=== PATIENT | female | born 1960 | race Two or more races ===

== ENCOUNTER 2018-09-07 05:59 | Day surgery (SDC) | payer BC, OTHER ==
[~2018-09-07] VITALS: Ht 162.6 cm; Wt 83.3 kg
[2018-09-07 06:40] VITALS: Ht 162.6 cm; Wt 83.3 kg
[2018-09-07] MEDS ORDERED: HYDR25TA6 PO (06:50)
[2018-09-07] MEDS ORDERED: ASPI-535 PO (06:50)
[2018-09-07] MEDS ORDERED: FOSI40TA5 PO (06:50)
[2018-09-07] MEDS ORDERED: INSU100I33 SC (06:50)
[2018-09-07] MEDS ORDERED: LINA5TAB PO (06:50)
[2018-09-07] MEDS ORDERED: EMPA25TA PO (06:50)
[2018-09-07] MEDS ORDERED: MTF1000T PO (06:50)
[2018-09-07 07:25] VITALS: BP 118/76; PULSE 75; RESP 12
--- NOTE | 2018-09-07 07:47 | PREAC ---
Date/Time of Note Date/Time of Note DATE: 09/07/18 TIME: 07:46 Anesthesia Eval and Record Evaluation Time Pre-Procedure Interview DATE: 09/07/18 TIME: 07:46 Age 58 Sex female NPO: 8 hrs Preoperative diagnosis screening for cancer Planned procedure colonoscopy with biopsies Past Medical History Past Medical History: Includes Cardio: HTN Endo: Diabetes Surgery & Anesthesia Issues No known issue Meds Anticoagulation: No Beta Augustine within 24 hr: No Reason Beta Augustine not given: Pt. not on B-Augustine Reported Medications Linagliptin (TRADJENTA) 5 Mg Tablet, 5 MG PO, TAB 09/07/18 Metformin* (Glucophage*) 1,000 Mg Tablet, 1000 MG PO BID, #60 TAB 09/07/18 Empagliflozin (Jardiance) 25 Mg Tablet, 25 MG PO, TAB 09/07/18 Hydrochlorothiazide* (Hydrochlorothiazide*) 25 Mg Tab, 25 MG PO DAILY, #30 TAB 09/07/18 Fosinopril Sodium (Fosinopril Sodium) 40 Mg Tablet, 40 MG PO DAILY, TAB 09/07/18 Insulin Glargine,Hum.rec.anlog (Basaglar Kwikpen U-100) 100 Unit/1 Ml Insuln.pen, 24 UNIT SC HS PRN for DAILY, EA 09/07/18 Aspirin Ec (Aspir 81) 81 Mg Tablet.dr, 81 MG PO DAILY, #30 TAB 09/07/18 Meds reviewed: No Allergies Coded Allergies: No Known Allergy (Verified Allergy, Unknown, 10/06/06) Allergies Reviewed: No Labs/Studies Labs Reviewed: Reviewed by anesthesiologist test: N/A Pre-procedure Exam Last vitals Vital Signs Date Temp Pulse Resp B/P (MAP) Pulse Ox O2 O2 Flow FiO2 Time Delivery Rate 09/07/18 97.8 75 12 118/76 99 Room Air 07:25 (90) Airway: Adequate mouth opening, Adequate thyromental dist Mallampati: Mallampati II Teeth: Normal Lung: Normal Heart: Normal ASA Physical Status ASA physical status: 2 Emergency: None Planned Anesthetic General/MAC: MAC Planned Pain Management Parenteral pain med Pre-operative Attestations Prior to commencing anesthesia and surgery, the patient was re-evaluated, there was verification of: *The patient's identity *The results of appropriate recent lab work and preoperative vital signs *The above evaluation not changing prior to induction *Anesthetic plan, risk benefits, alternative and complications discussed with patient/family; questions answered; patient/family understands, accepts and wishes to proceed. Rudolph Lew M.D. Sep 07, 2018 07:47
[2018-09-07] MEDS ORDERED: PROPOFOL 40 ML ONE (07:48)
[2018-09-07] MEDS ORDERED: LIDOCAINE 100 MG SYRINGE ONE (07:48)
[2018-09-07] MEDS ORDERED: TRIMETHOBENZAMIDE 100 MG/ML VIAL IM PRN (08:00)
[2018-09-07] MEDS ORDERED: OXYCODONE/ACETAMINOPHEN (5/325) TAB PO PRN ×2 (08:00)
[2018-09-07] MEDS ORDERED: EPHEDrine SULFATE 50 MG/5 ML SYG IV PRN (08:00)
[2018-09-07] MEDS ORDERED: MIDAZOLAM 1 MG/ML 2 ML INJ IV PRN (08:00)
[2018-09-07] MEDS ORDERED: HYDROmorphONE 1 MG/5 ML IV SYRINGE IV PRN ×3 (08:00)
[2018-09-07] MEDS ORDERED: FENTAnyl 50 MCG/ML VIAL IV PRN ×3 (08:00)
[2018-09-07] MEDS ORDERED: LABETALOL HCL 20MG INJ IV PRN (08:00)
[2018-09-07] MEDS ORDERED: ONDANSETRON 4 MG INJ IV PRN (08:00)
[2018-09-07] MEDS ORDERED: MEPERIDINE 25 MG INJ IV PRN (08:00)
[2018-09-07] MEDS ORDERED: DIPHENHYDRAMINE 50 MG INJ IV PRN (08:00)
[2018-09-07] MEDS ORDERED: ALBUTEROL 0.083% (NEB) 2.5 MG/3 ML AMP HHN PRN (08:00)
[2018-09-07] MEDS ORDERED: IPRATROPIUM (NEB) 0.5 MG/2.5 ML AMP HHN PRN (08:00)
[2018-09-07] MEDS ORDERED: hydrALAzine 20 MG INJ IV PRN (08:00)
[2018-09-07 08:34] VITALS: BP 105/59; PULSE 69; RESP 18
--- NOTE | 2018-09-07 08:39 | PAC ---
Date/Time of Note Date/Time of Note DATE: 09/07/18 TIME: 08:39 Post-Anesthesia Notes Post-Anesthesia Note Last documented vital signs Vital Signs Date Temp Pulse Resp B/P (MAP) Pulse Ox O2 O2 Flow FiO2 Time Delivery Rate 09/07/18 97.8 75 12 118/76 99 Room Air 08:25 (90) Activity: WNL Respiratory function: WNL Cardiovascular function: WNL Mental status: Baseline Pain reasonably controlled: Yes Hydration appropriate: Yes Nausea/Vomiting absent: Yes Rudolph Lew M.D. Sep 07, 2018 08:39
== END 2018-09-07 16:44 | disposition home or self-care (01) ==
LOC: GIL 05:59
PROVIDERS: ATTEND Internal Medicine Gastroenterology
DX: Z12.11 Encounter for screening for malignant neoplasm of colon (principal); K64.0 First degree hemorrhoids; I10 Essential (primary) hypertension; E11.9 Type 2 diabetes mellitus without complications
CPT/HCPCS: 45378; 82962; J2001; Z7610